=== PATIENT | female | born 1970 | race Caucasian/White ===

== ENCOUNTER 2019-12-09 17:09 | Emergency (ER) | payer MEDICAID ==
[~2019-12-09] VITALS: Ht 154.9 cm; Wt 50.0 kg
[~2019-12-09 17:09] MED LIST: MULT-1146 MT
[2019-12-09] MEDS ORDERED: LORAZEPAM 1MG TABLET PO ONE (18:30)
[2019-12-09 19:21] LABS: BASOPHILS % 0.2 % (0.0-2.0); HEMATOCRIT. 31.8 % (36.0-48.0); HEMOGLOBIN. 10.9 g/dL (12.0-16.0); LYMPHOCYTES % 7.1 % (20.0-50.0); MEAN CORPUSCULAR HEMOGLOBIN 34.3 pg (28.0-32.0); MEAN CORPUSCULAR VOLUME 99.7 fL (81.0-99.0); MONOCYTES % 5.2 % (2.0-8.0); NEUTROPHILS % 87.5 % (40.0-76.0); PLATELET 397 x1000/uL (130-400); RED BLOOD CELL COUNT 3.19 mill/uL (4.2-5.4); RED CELL DISTRIBUTION WIDTH 15.5 % (11.6-14.6)
[2019-12-09 19:28] LABS: CHLORIDE 103 mEq/L (98-107)
[2019-12-09 19:31] LABS: ETHANOL BLOOD < 10 mg/dL
[2019-12-09] MEDS ORDERED: POTASSIUM CHLORIDE 20MEQ TABLET SR PO ONE ×2 (20:15→21:30)
[2019-12-09] MEDS ORDERED: BENZTROPINE MESYLATE 1MG/1ML 2ML AMP IM ONE (21:30)
[2019-12-10 01:08] LABS: *AMPHETAMINES SCREEN URINE NEGATIVE (NEGATIVE); *BARBITURATES SCREEN URINE NEGATIVE (NEGATIVE)
[2019-12-10 01:09] LABS: *BENZODIAZEPINES SCREEN URINE NEGATIVE (NEGATIVE); *COCAINE SCREEN URINE NEGATIVE (NEGATIVE); CANNABINOID URINE SCREEN NEGATIVE (NEGATIVE); METHADONE URINE SCREEN NEGATIVE (NEGATIVE); OPIATES URINE SCREEN NEGATIVE (NEGATIVE); PHENCYCLIDINE URINE SCREEN NEGATIVE (NEGATIVE)
[2019-12-10 01:12] VITALS: BP 123/90
== END 2019-12-10 01:14 | disposition home or self-care (01) ==
LOC: ER 17:13
DX: E87.6 Hypokalemia (principal); F41.9 Anxiety disorder, unspecified; I10 Essential (primary) hypertension; Z87.891 Personal history of nicotine dependence
CPT/HCPCS: 36415; 80053; 80305; 80307; 80320; 80329; 85025; 96372; 99285; J0515; G0480